=== PATIENT | male | born 2005 | race Two or more races ===

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

== ENCOUNTER 2023-02-10 03:15 | Emergency (ER) | payer MEDICAID, SELFPAY ==
[2023-02-10 03:16] VITALS: BP 128/76; PULSE 71; RESP 18; TEMP 36.4; O2SAT 99; BMI 28.8
--- NOTE | 2023-02-10 06:27 | ED_ITS ---
HPI - General Adult General Chief complaint: Skin/Abscess/Foreign Body Stated complaint: Splinter on R wrist? Time Seen by Provider: 02/10/23 06:26 Source: patient Mode of arrival: ambulatory Limitations: no limitations History of Present Illness HPI narrative: Patient is a 17-year-old male with no past medical history presenting with question of splinter to right wrist. He reports he was taking out the trash se veral nights ago and is unsure if he sustained a wood splinter to his wrist. He states ?it feels like something is in there. ? He denies any discharge or drainage from the area. He denies any fevers. He denies any decreased range of motion. He is unsure of last tetanus vaccine. MD complaint: Question foreign body right wrist Onset (ago): day(s) Location: upper extremity Radiation: non-radiation Associated symptoms: denies other symptoms Treatments prior to arrival: none Related Data Previous Rx's Medication Instructions Recorded amoxicillin 875 mg-potassium 1 tab PO Q12H 10 days #20 tabs 07/31/20 clavulanate 125 mg tablet (Augmentin) doxycycline monohydrate 100 mg 100 mg PO BID #21 caps 09/16/20 capsule ibuprofen 600 mg tablet 600 mg PO Q8H PRN pain #20 tabs 04/12/21 ibuprofen 600 mg tablet 600 mg PO TID PRN fever or pain 09/12/22 #20 tabs melatonin 10 mg capsule 10 mg PO BEDTIME PRN sleep #20 caps 09/12/22 cephalexin 500 mg capsule 500 mg PO QID 7 days #28 caps 02/10/23 Allergies Allergy/AdvReac Type Severity Reaction Status Date / Time No Known Allergies Allergy Verified 05/16/21 16:11 Review of Systems Review of Systems: As per HPI. Yes all other systems are reviewed and are negative Constitutional: Constitutional: Reports as per HPI [facility] Past Medical History Medical History Healthy adolescent Social History Social History Alcohol intake: never Advance Directives: No Advance Directives Information Provided: Yes Current occupational status: student Current occupation: rt handed Physical Exam ED Vital Signs: Vital Signs - 24 hr 02/10/23 03:16 Temperature 97.6 F Pulse Rate 71 Respiratory Rate 18 Blood Pressure 128/76 Pulse Oximetry 99 Oxygen Delivery Method Room Air BMI result Body Mass Index 28.8 Vital signs have been reviewed and appear to be correct. Blood pressure normal. Heart rate normal. Respiratory rate normal. Temperature normal. Oxygen saturation normal. Const General: cooperative, healthy appearing and no acute distress Orientation/consciousness: oriented to person, oriented to place, oriented to time and patient oriented x3 Limitations: no limitations HENMT Head: Yes normocephalic and Yes atraumatic Ears: external ears normal General nose exam: Normal external nose present Face and sinus: Yes face symmetric Mouth: oropharynx normal and moist mucous membranes Throat: Yes uvula midline Eyes Pupils: Equal, round and reactive pupils present Neck Neck: Yes normal visual inspection and Yes supple Resp Effort & Inspection: normal respiratory effort and able to speak in complete sentences Auscultation: clear to auscultation bilaterally Cardio Rate: regular rate Rhythm: regular rhythm Heart sounds: S1 normal heart sound present and S2 normal heart sound present GI Palpation (GI): Soft to palpation and nontender Auscultation: normoactive bowel sounds General: Yes no CVA tenderness Back/Spine/Pelvis Back: no CVA tenderness Skin General skin exam: elasticity normal and turgor normal Neuro General: oriented to person, oriented to place, oriented to time, patient orie nted x3, moves all extremities, no focal motor deficits and CN's II-XI intact bilaterally Cranial nerves: Yes Equal, round and reactive pupils present Cognition (Neuro): normal cognition Extrem General: Yes full ROM, Yes no pedal edema and Yes no calf tenderness Right upper extremity: wrist Details: abrasion (minor abrasion with surrounding erythema and warmth, no discharge, no visible fb) wrist distal lateral Details: single Psych Mental Status: mental status grossly normal Affect: normal affect Thought process: Normal thought process present Medical Decision Making Medical Decision Making MDM Narrative: Patient is a 17-year-old male with no past medical history presenting with question of splinter to right wrist. On exam patient is awake, A&O x3 normal neurological exam without focal deficits, minor abrasion to ulnar aspect of right distal wrist with surrounding erythema and warmth, no fluctuance, no discharge or drainage. No visible foreign body, given suspected wood splinter unlikely to be visible on x-ray. Tdap ordered. Will prescribe antibiotics and instructed patient to soak wrist in warm water with salt several times daily. Return precautions discussed bedside and patient instructed to follow-up with PCP. Patient verbalized understanding of and agreement with plan. Differential Diagnosis Differential Diagnoses: The differential diagnosis associated with the presentation includes superficial foreign body, cellulitis, abrasion External Record Review External record reviewed: Inpatient record, Office record and Outpatient record Prescription Management I considered prescription management with: Antibiotic Discharge Plan Discharge Clinical Impression: Cellulitis of right wrist Patient Disposition: Home, Self-Care Instructions: Soft Tissue Foreign Body (ED), Cellulitis (DC) Additional Instructions: You are being prescribed antibiotics for infection to your wrist. Please complete the full course of antibiotics as prescribed. Return to the emergency department if you experience worsening redness, swelling, thick yellow discharge or drainage, fever 100.4? F or greater. Please follow-up with your primary care provider within the week. Prescriptions: New cephalexin 500 mg capsule 500 mg PO QID 7 Days Qty: 28 0RF No Action amoxicillin-pot clavulanate [Augmentin] 875-125 mg tablet 1 tab PO Q12H 10 Days Qty: 20 0RF doxycycline monohydrate 100 mg capsule 100 mg PO BID Qty: 21 0RF ibuprofen 600 mg tablet 600 mg PO Q8H PRN (Reason: pain) Qty: 20 0RF ibuprofen 600 mg tablet 600 mg PO TID PRN (Reason: fever or pain) Qty: 20 0RF melatonin 10 mg capsule 10 mg PO BEDTIME PRN (Reason: sleep) Qty: 20 0RF
[2023-02-10] MEDS: Diphth,Pertus(ACell),Tet Adult 0.5 ML SYRINGE IM (06:43)
[2023-02-10 06:47] VITALS: BP 111/70; PULSE 61; RESP 16; TEMP 36.5; O2SAT 97
--- NOTE | 2023-02-10 07:05 | PC.NURSE ---
vss. pt medicated according to mar. pt calm and cooperative. pt ambulatory at discharge. pt verbalized understanding of discharge plan
== END 2023-02-10 07:07 | disposition home or self-care (01) ==
PROVIDERS: Emergency Provider Emergency Medicine
DX: L03.113 Cellulitis of right upper limb (principal); S60.811A Abrasion of right wrist, initial encounter; W45.8XXA Other foreign body or object entering through skin, initial encounter; Y93.89 Activity, other specified; Y92.017 Garden or yard in single-family (private) house as the place of occurrence of the external cause; Y99.9 Unspecified external cause status
CPT/HCPCS: 90471; 90715; 99284

== ENCOUNTER 2023-08-21 01:01 | Emergency (ER) | payer MEDICAID, SELFPAY ==
--- NOTE | ~2023-08-21 | XR_ITS ---
EXAMINATION: XR WRIST, RIGHT CLINICAL INFORMATION: Pain COMPARISON: None available. TECHNIQUE: PA, lateral, and oblique views of the right wrist. FINDINGS: The bones and soft tissues are normal. No fracture. Alignment is anatomic with normal joint spaces. No erosions or abnormal soft tissue calcifications. XR/XR wrist RT min 3V IMPRESSION: Normal right wrist.
[2023-08-21 01:23] VITALS: BP 118/71; PULSE 97; RESP 14; TEMP 36.9; O2SAT 100; BMI 29.2
--- NOTE | 2023-08-21 01:56 | ED.EXTPRO ---
HPI - Extremity Problem General Chief complaint: Extremity Injury, Upper Stated complaint: hand pain Time Seen by Provider: 08/21/23 01:56 Source: patient Mode of arrival: ambulatory Limitations: no limitations History of Present Illness HPI Narrative: Patient complaining of right wrist pain after working at a job requiring having lifting patient did have radial styloid fracture 05/17 worried about it that it might have fractured again no direct trauma. Patient has more pain on movement of the right thumb no significant swelling or deformity Related Data Previous Rx's Medication Instructions Recorded amoxicillin 875 mg-potassium 1 tab PO Q12H 10 days #20 tabs 07/31/20 clavulanate 125 mg tablet (Augmentin) doxycycline monohydrate 100 mg 100 mg PO BID #21 caps 09/16/20 capsule ibuprofen 600 mg tablet 600 mg PO Q8H PRN pain #20 tabs 04/12/21 ibuprofen 600 mg tablet 600 mg PO TID PRN fever or pain 09/12/22 #20 tabs melatonin 10 mg capsule 10 mg PO BEDTIME PRN sleep #20 caps 09/12/22 cephalexin 500 mg capsule 500 mg PO QID 7 days #28 caps 02/10/23 ibuprofen 600 mg tablet 600 mg PO Q6H PRN fever or pain 08/21/23 #30 tabs Allergies Allergy/AdvReac Type Severity Reaction Status Date / Time No Known Allergies Allergy Verified 05/16/21 16:11 Review of Systems Review of Systems: Yes all other systems are reviewed and are negative [facility] Past Medical History Medical History Healthy adolescent Social History Social History Alcohol intake: never Advance Directives: No Advance Directives Information Provided: Yes Current occupational status: student Current occupation: rt handed Physical Exam Vital Signs: Vital Signs: Last Vital Signs Temp 98.5 F 08/21/23 01:23 Pulse 97 08/21/23 01:23 Resp 14 08/21/23 01:23 BP 118/71 08/21/23 01:23 Pulse Ox 100 08/21/23 01:23 O2 Del Method Room Air 08/21/23 01:23 BMI result Body Mass Index 29.2 Extrem: Hand/finger images: 1. Tenderness at right base of the thumb which increases on extension no deformity neurovascular intact Medications Administered Discontinued Medications Generic Name Dose Route Start Last Admin Trade Name Freq PRN Reason Stop Dose Admin Ibuprofen 600 mg 08/21/23 02:10 08/21/23 02:26 Ibuprofen 600 Mg Tablet PO 08/21/23 02:11 600 mg ONCE ONE Administration Medical Decision Making Medical Decision Making [facility] Narrative: Patient with right wrist strain x-ray negative for fracture discharge patient with splint and and NSAID Independent Interpretation I performed an independent interpretation of an: Plain X-Ray Radiology Impression Discussion of test interpretation with radiology: I have reviewed the radiologist's reading. Discharge Plan Discharge Clinical Impression: Sprain and strain of wrist Patient Disposition: Home, Self-Care Instructions: Wrist Sprain (ED) Additional Instructions: Rest your right wrist Use brace for support Your x-rays normal Ibuprofen for pain Prescriptions: New ibuprofen 600 mg tablet 600 mg PO Q6H PRN (Reason: fever or pain) Qty: 30 0RF No Action amoxicillin-pot clavulanate [Augmentin] 875-125 mg tablet 1 tab PO Q12H 10 Days Qty: 20 0RF doxycycline monohydrate 100 mg capsule 100 mg PO BID Qty: 21 0RF ibuprofen 600 mg tablet 600 mg PO Q8H PRN (Reason: pain) Qty: 20 0RF ibuprofen 600 mg tablet 600 mg PO TID PRN (Reason: fever or pain) Qty: 20 0RF melatonin 10 mg capsule 10 mg PO BEDTIME PRN (Reason: sleep) Qty: 20 0RF cephalexin 500 mg capsule 500 mg PO QID 7 Days Qty: 28 0RF Stand Alone Forms: Work/School Release
[2023-08-21] MEDS: Ibuprofen 600 MG TABLET PO (02:26)
== END 2023-08-21 10:16 | disposition home or self-care (01) ==
PROVIDERS: Emergency Provider Internal Medicine
DX: S63.501A Unspecified sprain of right wrist, initial encounter (principal); X50.0XXA Overexertion from strenuous movement or load, initial encounter; Y92.9 Unspecified place or not applicable; Y99.0 Civilian activity done for income or pay
CPT/HCPCS: 29125; 73110; 99283

== ENCOUNTER 2024-07-12 15:44 | Emergency (ER) | payer MEDICAID, SELFPAY ==
--- NOTE | ~2024-07-12 | XR_ITS ---
EXAMINATION: XR CHEST CLINICAL INFORMATION: Shortness of breath. COMPARISON: None available. TECHNIQUE: 2 views of the chest were obtained. FINDINGS: The lungs are clear. The cardiomediastinal silhouette is normal in size. There is no pleural effusion or pneumothorax. No acute osseous abnormality. XR/XR chest 2V IMPRESSION: No acute cardiopulmonary findings. Electronically signed by: Jose Daniel Thornton MD 07/12/2024 04:30 PM [facility] [facility] [place]
[2024-07-12 15:45] VITALS: BP 142/83; PULSE 130; RESP 26; TEMP 36.6; O2SAT 100; BMI 30.3
--- NOTE | 2024-07-12 15:46 | ED.GENADULT ---
HPI - General Adult General Chief complaint: Anxiety Stated complaint: sob Time Seen by Provider: 07/12/24 17:21 Source: patient Mode of arrival: ambulatory Limitations: no limitations History of Present Illness ED Provider: nelida GOMEZ narrative: Patient has been complaining of sore throat for last 3 days today became was paniced [employer], does have history of anxiety but does not take any medication was given hydroxyzine 25 mg in the triage feeling much better after that but still complaining of sore throat patient has had COVID flu influenza test negative Related Data Previous Rx's ?Medication ?Instructions ?Recorded amoxicillin 875 mg-potassium 1 tab PO Q12H 10 days #20 tabs 07/31/20 clavulanate 125 mg tablet (Augmentin) doxycycline monohydrate 100 mg 100 mg PO BID #21 caps 09/16/20 capsule ibuprofen 600 mg tablet 600 mg PO Q8H PRN pain #20 tabs 04/12/21 ibuprofen 600 mg tablet 600 mg PO TID PRN fever or pain 09/12/22 #20 tabs melatonin 10 mg capsule 10 mg PO BEDTIME PRN sleep #20 caps 09/12/22 cephalexin 500 mg capsule 500 mg PO QID 7 days #28 caps 02/10/23 ibuprofen 600 mg tablet 600 mg PO Q6H PRN fever or pain 08/21/23 #30 tabs hydroxyzine HCl 25 mg tablet 25 mg PO BID PRN anxiety #14 tabs 07/12/24 Allergies Allergy/AdvReac Type Severity Reaction Status Date / Time No Known Allergies Allergy Verified 07/12/24 15:47 Review of Systems Review of Systems: Yes all other systems are reviewed and are negative PMFSH Past Medical History Medical History Healthy adolescent Social History Social History Alcohol intake: never Smoked in Last 30 Days: No Use of substances other than those prescribed or required for medical reasons: Yes Substance Use Type: Marijuana Substance Use Frequency: Daily Last Used Substance: Hours (ago) Advance Directives: No Advance Directives Information Provided: No Current occupational status: student Current occupation: rt handed Physical Exam ED Vital Signs: Vital Signs - 24 hr 07/12/24 15:45 07/12/24 17:42 07/12/24 18:25 Temperature 97.9 F 0 F L Pulse Rate 130 H 78 78 Respiratory Rate 26 H 15 15 Blood Pressure 142/83 H 133/80 133/80 Pulse Oximetry 100 99 99 Oxygen Delivery Method Room Air Room Air Room Air BMI result Body Mass Index 30.3 Appearance: Alert. Oriented X3. No acute distress. ENT: Pharynx slight erythematous no exudate Oral Mucosa moist Neck: Normal inspection. Neck supple. CVS: Normal heart rate and rhythm. Pulses normal. Respiratory: No respiratory distress. Equal air entry bilateral, no wheezing/rales/rhonchi Abdomen: Soft and nontender. Bowel sounds are present, no mass palpable, no CVA tenderness Skin: Skin warm and dry. Normal skin color. Normal skin turgor. Extremities: No lower extremity edema. No calf tenderness Neuro: Oriented X 3. Course Course Course Narrative: This is an RME: Additional HPI, ROS, PE not included below will be deferred to primary provider. RME assessment and note performed by: Mariana Zapata PA-C This is a 8-rins-dch-male, with a hx of anxiety, who presents to the ER with complaints of sob. Reports that he was playing video games when he suddenly felt SOB. Reports that he smokes week, denies other drug use. Patient reporting tingling into his fingers and into his face. Reports that he has a history of anxiety. He is speaking full sentences, lungs clear to auscultation bilaterally. Plan: Labs, EKG, chest x-ray, will medicate with Atarax 25 mg p.o., further treatment and workup will be performed by primary provider. Awaiting room to place patient Medications Administered Discontinued Medications Generic Name Dose Route Start Last Admin Trade Name Cabrera PRN Reason Stop Dose Admin Hydroxyzine HCl 25 mg 07/12/24 15:51 07/12/24 16:07 Hydroxyzine Hcl 25 Mg Tablet PO 07/12/24 15:52 25 mg ONCE ONE Administration Medical Decision Making Medical Decision Making [facility] Narrative: Patient is a upper respiratory symptoms with anxiety feels much better after Atarax lab workup is negative likely viral with panic attack discharge patient home on hydroxyzine Lab Data [facility] Lab Attestation statement: I reviewed the patient's lab results. 07/12/24 17:10 07/12/24 17:10 Labs: Lab Results 07/12/24 07/12/24 07/12/24 Range/Units 17:10 17:11 17:34 WBC 8.6 (4.8-10.8) X10*3/uL RBC 5.22 (4.60-5.80) X10*6/uL Hgb 14.9 (14.0-18.0) g/dl Hct 42.3 (42.0-52.0) % MCV 81.0 (80.0-98.0) fL MCH 28.5 (27.0-33.0) pg MCHC 35.2 (31.0-36.0) g/dl RDW 12.2 (11.0-16.0) % Plt Count 321 (160-400) X10*3/uL MPV 9.5 (9.4-12.4) fL Immature Gran % (Auto) 0.3 (0.0-0.4) % Neut % (Auto) 75.6 H (45-73) % Lymph % (Auto) 14.4 L (20-40) % [place] % (Auto) 6.7 (2-11) % Eos % (Auto) 2.7 (0-4) % Baso % (Auto) 0.3 (0-2) % Lymph # (Auto) 1.2 (1.2-4.9) X10*3/uL [place] # (Auto) 0.6 (0.1-1.2) X10*3/uL Eos # (Auto) 0.2 (0.0-0.4) X10*3/uL Baso # (Auto) 0.0 (0.0-0.2) X10*3/uL Abs Immat Gran (auto) 0.03 (0.00-0.03) X10*3/uL Absolute Neuts (auto) 6.5 (2.0-8.3) x10*3/uL Absolute Nucleated RBC 0.000 (0.0-0.012) X10*3/uL Nucleated RBC % (auto) 0.0 (0.0-0.2) /100WBC PT 11.8 (10.9-12.4) SEC INR 1.0 (0.9-1.1) Sodium 141 (135-145) mmol/L Potassium 3.6 (3.3-5.1) mmol/L Chloride 109 H (96-108) mmol/L Carbon Dioxide 23 (22-29) mmol/L Anion Gap 13 (12-20) BUN 13 (9-16) mg/dL Creatinine 0.80 (0.5-1.4) mg/dL Estim Creat Clear Calc 186.8 Estimated GFR > 60 Random Glucose 91 (60-115) mg/dL Calcium 9.6 (8.4-10.2) mg/dL Magnesium 2.1 (1.6-2.6) mg/dL Total Bilirubin 0.4 (0.0-1.0) mg/dL Direct Bilirubin 0.2 (0.0-0.5) mg/dL AST 25 (5-37) U/L ALT 26 (0-40) U/L Alkaline Phosphatase 75 (39-117) U/L Troponin I High Sens < 2.7 (<3.5-35.0) ng/L Total Protein 7.5 (6.5-8.0) g/dL Albumin 4.6 (3.5-5.0) g/dL Influenza Type A (PCR) NEGATIVE (Negative) Influenza Type B (PCR) NEGATIVE (Negative) RSV RNA Qual (PCR) NEGATIVE (Negative) SARS-CoV-2 RNA (RT-PCR) NEGATIVE (Negative) S. pyogenes GrpA NOLBERTO Negative (Negative) Discharge Plan Discharge Clinical Impression: Acute anxiety Patient Disposition: Home, Self-Care Instructions: Anxiety (ED) Additional Instructions: Drink plenty of fluids Hydroxyzine 25 mg 1 tablet twice a day for anxiety Prescriptions: New hydroxyzine HCl 25 mg tablet 25 mg PO BID PRN (Reason: anxiety) Qty: 14 0RF No Action amoxicillin-pot clavulanate [Augmentin] 875-125 mg tablet 1 tab PO Q12H 10 Days Qty: 20 0RF doxycycline monohydrate 100 mg capsule 100 mg PO BID Qty: 21 0RF ibuprofen 600 mg tablet 600 mg PO Q8H PRN (Reason: pain) Qty: 20 0RF ibuprofen 600 mg tablet 600 mg PO TID PRN (Reason: fever or pain) Qty: 20 0RF melatonin 10 mg capsule 10 mg PO BEDTIME PRN (Reason: sleep) Qty: 20 0RF cephalexin 500 mg capsule 500 mg PO QID 7 Days Qty: 28 0RF ibuprofen 600 mg tablet 600 mg PO Q6H PRN (Reason: fever or pain) Qty: 30 0RF Interventions: ED Discharge Assessment Last Done: 07/12/24 18:25 Discharge Date/Time: 07/12/24 18:26 Print Language: Norwegian
--- NOTE | 2024-07-12 15:48 | ECG_ITS ---
Test Reason : sob Blood Pressure : / mmHG Vent. Rate : 088 BPM Atrial Rate : 088 BPM P-R Int : 164 ms QRS Dur : 112 ms QT Int : 356 ms P-R-T Axes : 076 049 059 degrees QTc Int : 430 ms Normal sinus rhythm Normal ECG No previous ECGs available Referred By: Mariana Zapata Electronically Signed By:Ambrosio Almanza
[2024-07-12] MEDS: hydrOXYzine HCL 25 MG TABLET PO (16:07)
--- NOTE | 2024-07-12 16:34 | PC.NURSE ---
Addendum entered by Sobeida Soni RN 07/12/24 16:52: Pt denies n/v/d and reports able to eat and drink well. Denies cough Denies Hx Asthma Pt reports he was laying down when onset occurred and denies any prior incident. Pt reports normal bowel and urine patterns. Original Note: Pt comes to ED today with c/o pressure to this throat starting yesterday. Pt reports when the pressure did not subside he began to feel panicked Pt is now tearful and reports feeling very anxious. Pt is A&Ox3, calm and cooperative.
[2024-07-12 17:15] LABS: MANUAL DIFF FLAG NO
[2024-07-12 17:17] LABS: Basophils Percent Auto 0.3 % (0-2); Eosinophils Absolute Auto 0.2 X10*3/uL (0.0-0.4); Eosinophils Percent Auto 2.7 % (0-4); Hematocrit 42.3 % (42.0-52.0); Hemoglobin 14.9 g/dl (14.0-18.0); Imm Gran Abs Auto 0.03 X10*3/uL (0.00-0.03); Imm Gran Pct Auto 0.3 % (0.0-0.4); Lymphocytes Absolute Auto 1.2 X10*3/uL (1.2-4.9); Lymphocytes Percent Auto 14.4 % (20-40); Mean Corpuscular HGB Conc 35.2 g/dl (31.0-36.0); Mean Corpuscular Hemoglobin 28.5 pg (27.0-33.0); Mean Platelet Volume 9.5 fL (9.4-12.4); Monocytes Absolute Auto 0.6 X10*3/uL (0.1-1.2); Monocytes Percent Auto 6.7 % (2-11); Neutrophils Absolute Auto 6.5 x10*3/uL (2.0-8.3); Neutrophils Percent Auto 75.6 % (45-73); Platelet Count 321 X10*3/uL (160-400); Red Blood Count 5.22 X10*6/uL (4.60-5.80); Red Cell Distribution Width 12.2 % (11.0-16.0); White Blood Count 8.6 X10*3/uL (4.8-10.8)
[2024-07-12 17:42] VITALS: BP 133/80; PULSE 78; RESP 15; O2SAT 99
[2024-07-12 17:43] LABS: Alanine Aminotransferase 26 U/L (0-40); Albumin Level 4.6 g/dL (3.5-5.0); Anion Gap 13 (12-20); Aspartate Amino Transferase 25 U/L (5-37); Bilirubin Direct 0.2 mg/dL (0.0-0.5); Bilirubin Total 0.4 mg/dL (0.0-1.0); Blood Urea Nitrogen 13 mg/dL (9-16); Calcium 9.6 mg/dL (8.4-10.2); Carbon Dioxide 23 mmol/L (22-29); Chloride 109 mmol/L (96-108); Creatinine Clr Calc Pharmacy 186.8; Estimated Glomerular Filt Rate > 60; Glucose Random 91 mg/dL (60-115); Magnesium 2.1 mg/dL (1.6-2.6); Potassium 3.6 mmol/L (3.3-5.1); Sodium 141 mmol/L (135-145); Total Protein 7.5 g/dL (6.5-8.0)
[2024-07-12 17:50] LABS: Troponin-I High Sensitivity < 2.7 ng/L (<3.5-35.0)
[2024-07-12 17:55] LABS: Prothrombin Time 11.8 SEC (10.9-12.4)
[2024-07-12 17:56] LABS: Influenza A PCR NEGATIVE (Negative); Influenza B PCR NEGATIVE (Negative); Resp Syncy Virus RNA Qual PCR NEGATIVE (Negative); SARS COV2 PCR INHOUSE NEGATIVE (Negative)
[2024-07-12 18:02] LABS: IDNOW Serial# 08D9AD1C; Strep A Nucleic Acid Negative (Negative)
[2024-07-12 18:24] LABS: Alkaline Phosphatase 75 U/L (39-117)
[2024-07-12 18:25] VITALS: BP 133/80; PULSE 78; RESP 15; TEMP -17.7; TEMP 0; O2SAT 99
== END 2024-07-12 18:26 | disposition home or self-care (01) ==
PROVIDERS: Physician Assistant Medical; Emergency Provider Internal Medicine
DX: F41.9 Anxiety disorder, unspecified (principal); R06.02 Shortness of breath; J02.9 Acute pharyngitis, unspecified; Z03.818 Encounter for observation for suspected exposure to other biological agents ruled out; Z79.899 Other long term (current) drug therapy
CPT/HCPCS: 0241U; 36415; 71046; 80048; 80076; 83735; 84484; 85025; 85610; 87651; 93005; 99283; 99285

== ENCOUNTER → 2024-07-12 15:48 | Outpatient (BNV) | payer MEDICAID, SELFPAY | PROVIDERS: Emergency Provider Internal Medicine; Visit Provider Internal Medicine Cardiovascular Disease | DX: R06.02 Shortness of breath (principal) | CPT/HCPCS: 93010 ==

== ENCOUNTER 2024-07-17 17:26 | Outpatient (REF) | payer MEDICAID, SELFPAY | END 2024-07-17 17:27 | disposition home or self-care (01) | LOC: HO.LNP 17:26 | PROVIDERS: Visit Provider Nurse Practitioner | DX: R05.9 Cough, unspecified (principal) | CPT/HCPCS: 87070 ==

== ENCOUNTER 2024-09-18 15:45 | Emergency (ER) | payer MEDICAID, SELFPAY ==
[2024-09-18 15:58] VITALS: BP 148/94; PULSE 89; RESP 20; TEMP 37.2; O2SAT 100; BMI 27.5
[2024-09-18 20:25] VITALS: BP 119/74; PULSE 87; RESP 20; TEMP 36.8; O2SAT 99
--- NOTE | 2024-09-18 20:55 | ED.GENADULT ---
HPI - General Adult General Chief complaint: Headache Stated complaint: severe headache x2 wks/bump on head no inj Time Seen by Provider: 09/18/24 20:55 History of Present Illness ED Provider: Cal GOMEZ narrative: The patient is a 19-year-old male who comes to the hospital for a number of complaints. For the last 3 weeks he has had some pain in the left side of his neck. This has been associated with intermittent headaches. Sometimes he is photophobic. Tonight he was feeling the right side of his scalp. He says that when he was very small he had a laceration repair to his right scalp. He has always had some irregularity in the area of the injury. Today he thought there might be an additional bump near the area of his old injury. This made him worried about his health and he decided to come to the emergency room. He has also had an intermittent sense of a lump behind his left ear. He is also worrisome. The patient acknowledges that he sometimes gets excessively worried about his health. He has had no fever, sweats, chills. No visual symptoms. No neck stiffness. Related Data Previous Rx's ?Medication ?Instructions ?Recorded amoxicillin 875 mg-potassium 1 tab PO Q12H 10 days #20 tabs 07/31/20 clavulanate 125 mg tablet (Augmentin) doxycycline monohydrate 100 mg 100 mg PO BID #21 caps 09/16/20 capsule ibuprofen 600 mg tablet 600 mg PO Q8H PRN pain #20 tabs 04/12/21 ibuprofen 600 mg tablet 600 mg PO TID PRN fever or pain 09/12/22 #20 tabs melatonin 10 mg capsule 10 mg PO BEDTIME PRN sleep #20 caps 09/12/22 cephalexin 500 mg capsule 500 mg PO QID 7 days #28 caps 02/10/23 ibuprofen 600 mg tablet 600 mg PO Q6H PRN fever or pain 08/21/23 #30 tabs hydroxyzine HCl 25 mg tablet 25 mg PO BID PRN anxiety #14 tabs 07/12/24 Allergies Allergy/AdvReac Type Severity Reaction Status Date / Time No Known Allergies Allergy Verified 09/18/24 16:01 Review of Systems Review of Systems: Yes all other systems are reviewed and are negative PMFSH Past Medical History Medical History Healthy adolescent Social History Social History Alcohol intake: never Substance Use Type: Marijuana Advance Directives: No Advance Directives Information Provided: No Do you have a plan to hurt others: No Plan Current occupational status: student Current occupation: rt handed Physical Exam ED Vital Signs: Vital Signs - 24 hr 09/18/24 15:58 09/18/24 20:25 Temperature 98.9 F 98.3 F Pulse Rate 89 87 Respiratory Rate 20 20 Blood Pressure 148/94 H 119/74 Pulse Oximetry 100 99 Oxygen Delivery Method Room Air Room Air BMI result Body Mass Index 27.5 Const Other: The patient is a healthy-appearing 19-year-old male who was awake and alert and looks well. HENMT Other: Face is symmetrical and unremarkable. The posterior pharynx is normal. On the patient's right parietal scalp there is a slight divot where he indicates he had a wound when he was very small. I do not appreciate any erythema, pathological swelling or any other acute finding. I do not appreciate anything abnormal behind his left ear. Eyes Other: Pupils are round, equal, and reactive to light, extraocular movements are intact, conjunctivae are clear, funduscopic exam is normal bilaterally. Neck Other: No cervical adenopathy, the neck is entirely supple. No masses. Resp Effort & Inspection: normal respiratory effort Auscultation: clear to auscultation bilaterally Cardio Rate: regular rate Rhythm: regular rhythm Heart sounds: S1 normal heart sound present and S2 normal heart sound present Skin Other: Skin is dry and unremarkable Neuro Other: The patient is awake and alert with a normal mental status. Cranial nerves 2-12 are intact. He moves his extremities normally and appropriately. He seems entirely neurologically intact. Extrem Other: No peripheral edema. Psych Other: The patient is well-groomed. He is pleasant cooperative. He does seem to be a bit repetitive in his description of his health concerns however. Medical Decision Making Medical Decision Making MDM Narrative: The patient is a 19-year-old male who has had some left-sided neck pain intermittently and some left-sided headaches intermittently over the last 3 weeks. He also was concerned that there might be some sort of palpable lump near an old injury to the right scalp where he had an injury as a child. He also has been concerned about intermittently feeling a lump behind his left ear. As far as I can tell the patient looks entirely well. He admits to having a lot of health anxiety. I did my best to reassure him. I do not think he has any acutely significant process at work. He should follow up with his regular doctor. Discharge Plan Discharge Clinical Impression: Headache, Neck pain Patient Disposition: Home, Self-Care Additional Instructions: You are checking out very well today. I do not think that there is any dangerous process at work. I do not think your health is in any danger. I think you are quite healthy. Please make a follow up appointment at your regular doctor's office to discuss your concerns further. Return to the emergency room if you feel significantly worse. Prescriptions: No Action amoxicillin-pot clavulanate [Augmentin] 875-125 mg tablet 1 tab PO Q12H 10 Days Qty: 20 0RF doxycycline monohydrate 100 mg capsule 100 mg PO BID Qty: 21 0RF ibuprofen 600 mg tablet 600 mg PO Q8H PRN (Reason: pain) Qty: 20 0RF ibuprofen 600 mg tablet 600 mg PO TID PRN (Reason: fever or pain) Qty: 20 0RF melatonin 10 mg capsule 10 mg PO BEDTIME PRN (Reason: sleep) Qty: 20 0RF cephalexin 500 mg capsule 500 mg PO QID 7 Days Qty: 28 0RF ibuprofen 600 mg tablet 600 mg PO Q6H PRN (Reason: fever or pain) Qty: 30 0RF hydroxyzine HCl 25 mg tablet 25 mg PO BID PRN (Reason: anxiety) Qty: 14 0RF Referrals: [facility] [Provider Group] (Multiple health concerns) Print Language: Guinean
[2024-09-18 21:17] VITALS: BP 119/74; PULSE 87; RESP 20; TEMP 36.8; O2SAT 99
== END 2024-09-18 21:17 | disposition home or self-care (01) ==
PROVIDERS: Emergency Provider Emergency Medicine
DX: M54.2 Cervicalgia (principal); R51.9 Headache, unspecified
CPT/HCPCS: 99282; 99283